=== PATIENT | male | born 1975 | race African-American/Black ===

== ENCOUNTER 2017-02-18 10:55 | Emergency (ER) | payer OTHER, SELFPAY | END 2017-02-18 12:08 | disposition home or self-care (01) | LOC: ERS 10:55 | DX: B34.9 Viral infection, unspecified (principal); F17.210 Nicotine dependence, cigarettes, uncomplicated | CPT/HCPCS: 87804; 99283 ==

== ENCOUNTER 2018-05-09 14:54 | Emergency (ER) | payer OTHER | END 2018-05-09 16:30 | disposition left against medical advice (07) | LOC: ERS 14:54 | DX: R20.0 Anesthesia of skin (principal); F17.210 Nicotine dependence, cigarettes, uncomplicated ==

== ENCOUNTER 2020-02-21 03:10 | Emergency (ER) | payer BC, SELFPAY ==
[2020-02-21] MEDS ORDERED: Boostrix 0.5 ML (Tdap) VIAL ONE (04:27)
== END 2020-02-21 05:35 | disposition home or self-care (01) ==
LOC: ERS 03:10
DX: S61.257A Open bite of left little finger without damage to nail, initial encounter (principal); F17.210 Nicotine dependence, cigarettes, uncomplicated; W53.11XA Bitten by rat, initial encounter
CPT/HCPCS: 90471; 90715